=== PATIENT | female | born 1990 | race Caucasian/White ===

== ENCOUNTER 2024-12-07 15:20 | Emergency (ER) | payer OTHER, SELFPAY ==
[2024-12-07 15:29] VITALS: BP 120/75; BP 130/70; PULSE 109; PULSE 115; RESP 21; TEMP 36.2; O2SAT 95; BMI 21.2
--- NOTE | 2024-12-07 16:15 | ED_ITS ---
HPI - General Adult General Chief complaint: Fall Stated complaint: fall, hit head, l eyebrow lac, drank 2 beers Time Seen by Provider: 12/07/24 16:09 Source: patient Mode of arrival: ambulatory Limitations: no limitations History of Present Illness ED Provider: Fidelina Capps PA-C HPI narrative: This is a 34-year-old female, with no known medical problems, who presents emergency department via EMS due to patient reporting a fall. Patient is wanting to leave the emergency room prior to being evaluated. She states that she tripped over her shoe and she hit her head. She denies LOC. she reports that she is feeling well, has no headaches, blurred vision, chest pain, shortness Of breath, abdominal pain, nausea, vomiting or diarrhea. she states that she feels safe at home, and would like to be discharged immediately without treatment. MD complaint: Head strike, laceration left eyebrow Radiation: non-radiation Severity: moderate Quality: aching Pain Consistency: constant Relieving factors: none Exacerbating factors: none Associated symptoms: denies other symptoms Treatments prior to arrival: none Related Data Allergies Allergy/AdvReac Type Severity Reaction Status Date / Time No Known Allergies Allergy Verified 12/07/24 15:36 Review of Systems Review of Systems: Yes all other systems are reviewed and are negative Constitutional: Constitutional: Reports as per [facility] Social History Social History Alcohol intake: current Smoked in Last 30 Days: Yes Use of substances other than those prescribed or required for medical reasons: No Advance Directives: No Advance Directives Information Provided: No Do you have a plan to hurt others: No Plan Physical Exam ED Vital Signs: Vital Signs - 24 hr 12/07/24 15:29 12/07/24 16:21 Temperature 97.1 F 97.1 F Pulse Rate 109 H 109 H Respiratory Rate 21 H 21 H Blood Pressure 120/75 120/75 Pulse Oximetry 95 95 Oxygen Delivery Method Room Air Room Air BMI result Body Mass Index 21.2 Const General: cooperative, comfortable and no acute distress Limitations: no limitations HENMT Other: patient with infraorbital ecchymosis seen, no bony step-off or deformity. Left eyebrow with 1 cm partial-thickness laceration noted, the active bleeding noting. Head: Yes normal to inspection, Yes normocephalic, Yes atraumatic, No Zuñiga's sign, No occipital foramen tenderness, No raccoon eyes, No scalp lesion and No scalp tenderness Ears: hearing grossly normal bilaterally and TM's normal bilaterally ( No hemotympanum) General nose exam: Normal external nose present Face and sinus: Yes normal facial exam Mouth: Normal oral and palatal mucosa present, oropharynx normal and moist mucous membranes Throat: Yes posterior oropharynx normal Eyes General: appearance normal, both eyes and all related structures Eyelids: Yes eyelids normal Conjunctivae: conjunctivae normal Sclerae: sclerae normal Pupils: Equal, round and reactive pupils present EOM: EOMs intact bilaterally Neck Other: no midline spine tenderness on examination. Neck: Yes normal visual inspection, Yes full ROM and Yes no lymphadenopathy Lymphatic: no lymphadenopathy noted Chest Chest palpation & inspection: normal inspection of the chest Resp Effort & Inspection: normal respiratory effort and able to speak in complete sentences Auscultation: clear to auscultation bilaterally, no crackles, no rales, no rhonchi and no wheezes Cardio Rate: regular rate Rhythm: regular rhythm Heart sounds: S1 normal heart sound present and S2 normal heart sound present GI Inspection: Yes normal to inspection Skin General skin exam: no rashes or lesions noted Trauma: no lacerations or abrasions Wounds: no wounds Neuro General: moves all extremities Cranial nerves: Yes CN's II-XII intact bilaterally and Yes Equal, round and reactive pupils present Cognition (Neuro): normal cognition Gait exam (Neuro): Normal gait present Motor exam (neuro): 5/5 motor strength present throughout and Pronator motor function not present Extrem General: Yes normal to inspection Right upper extremity: normal to inspection Left upper extremity: normal to inspection Right lower extremity: normal to inspection Left lower extremity: normal to inspection Medical Decision Making Medical Decision Making MDM Narrative: This is a 34-year-old female who presents emergency department for evaluation of laceration to left eyebrow status post mechanical fall which occurred today. Patient was brought in by EMS. On arrival, vital signs reveal slight tachycardia at 1:09 a.m., she is anxious appearing. I found patient trying to walk out of the emergency room, stating that she did not want to be here. I assess patient, she is neurologically intact with no focal deficits on exami [facility]. She does have a partial-thickness laceration noted to her left eyebrow, with ecchymosis seen in her right infraorbital region with no bony step-off or deformity. Patient requiring suture repair of her left eyebrow. Patient is adamant that she does not want to stay in the emergency room to be medically evaluated. I discussed with patient that she should stay to be fully medically evaluated, discussed that she may have life-threatening injury, I discussed with patient that I would like to get a CT of her head, and facial bones however she adamantly refuses. She is alert and oriented, with no clinical indication that she could not make these medical decisions on her own. I discussed with patient that if she signs against medical advice she is understanding the risks and consequences of leaving including serious injury and or . She understands these consequences, patient signed against medical advice Differential Diagnosis Differential Diagnoses: The differential diagnosis associated with the presentation includes ICH, laceration, closed head injury, fall Discharge Plan Discharge Clinical Impression: Laceration of eyebrow, Head injury Patient Disposition: Left Against Medical Advice Instructions: Head Injury (ED) Additional Instructions: You presented to the emergency department after a reported fall. You did not want to stay to be evaluated. I discussed with the you that leaving today is leaving against medical advice. You have a laceration of your left eyebrow which require suture repair. You declined wanting to have this performed. I am also recommending you have images given bruising on your head, however you declined this. I discussed with you that you are at risk for serious injury including but not limited to stroke and/or . You understand these risks, and still would leave against medical advice. Stand Alone Forms: Against Medical Advice Interventions: ED Discharge Assessment Last Done: 12/07/24 16:21 Discharge Date/Time: 12/07/24 16:25 Print Language: Omani
[2024-12-07 16:21] VITALS: BP 120/75; PULSE 109; RESP 21; TEMP 36.2; O2SAT 95
--- NOTE | 2024-12-07 16:22 | PC.NURSE ---
Pt states I don't even know why the cooking chef were called, I'm fine and I feel fine. This is taking too long, I'm just going to leave. MD aware and brought to bedside. RN and MD explained risks of leaving without evaluation, offered medication and imaging, pt adamant about leaving. Pt educated again on risks and signs and symptoms to look out for, pt verbalizes understanding. Pt aaox4, dispo changed to AMA.
== END 2024-12-07 16:25 | disposition left against medical advice (07) ==
PROVIDERS: Emergency Provider Emergency Medicine
DX: S01.112A Laceration without foreign body of left eyelid and periocular area, initial encounter (principal); S09.90XA Unspecified injury of head, initial encounter; W01.0XXA Fall on same level from slipping, tripping and stumbling without subsequent striking against object, initial encounter; Z53.29 Procedure and treatment not carried out because of patient's decision for other reasons; R00.0 Tachycardia, unspecified; Y93.9 Activity, unspecified; Y92.9 Unspecified place or not applicable; Y99.9 Unspecified external cause status
CPT/HCPCS: 99283; 99284

== ENCOUNTER 2025-02-04 13:26 | Inpatient (IN) | payer OTHER, SELFPAY ==
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
--- NOTE | ~2025-02-04 | CT_ITS ---
CLINICAL HISTORY: Low sats, high D-dimer CT angiography chest using contrast. 3-D postprocessing Comparison: CR/SR - XR CHEST 2 VIEWS - 02/04/25 16:24 EDT Findings: There is good opacification of the main, right and left pulmonary arteries. No CT evidence of pulmonary embolism. Normal caliber thoracic aorta and great vessels. Heart size within normal limits. RV/LV ratio normal. Shotty mediastinal lymph nodes. No lymphadenopathy. Subsegmental dependent atelectasis. Subtle patchy interstitial disease possible interstitial pneumonitis. No pneumothorax, pleural effusions, pleural plaques or calcifications. No thyroid nodules demonstrated. No chest wall masses.No axillary adenopathy. Hepatic steatosis. No splenomegaly. Mild hepatomegaly. No bony destructive processes demonstrated. Impression: 1. No CT evidence of pulmonary embolus. 2. Normal caliber thoracic aorta. 3. Subsegmental dependent atelectasis. Subtle patchy interstitial disease possible interstitial pneumonitis. No pleural effusions. 4. Mild hepatomegaly with hepatic steatosis. This document has been electronically signed by: Victorino Salomon MD on 02/04/2025 20:02:17
--- NOTE | ~2025-02-04 | XR_ITS ---
EXAMINATION: XR CHEST CLINICAL INFORMATION: Low oxygen sats COMPARISON: None available. TECHNIQUE: 2 views of the chest were obtained. FINDINGS: The cardiac, hilar, and mediastinal contours are normal. There are patchy oval and rounded pulmonary opacities bilaterally. Most notable is in the right lower lung. There is no pneumothorax or pleural effusion. There is no focal osseous or soft tissue abnormality. XR/XR chest 2V IMPRESSION: Bilateral subtle patchy pulmonary opacities suspicious for multifocal pneumonia. Electronically signed by: Mook Guzman MD 02/04/2025 04:29 PM EDT RP
--- NOTE | 2025-02-04 13:36 | ED_ITS ---
HPI - General Adult General Chief complaint: ETOH/Substance Use Stated complaint: HEAVY ETOH INTOXICATION,UNABLE TO STAND PER EMS Time Seen by Provider: 02/04/25 13:29 History of Present Illness ED Provider: Demarco CALI narrative: The patient is a 34-year-old woman with a history of homelessness and alcoholism who was brought to the hospital by ambulance after being found passed out on a sidewalk today. The patient admits to using alcohol. She denies any other drug use. She denies any kind of IV drug use especially. She denies any injuries. She feels extremely thirsty. She is also complaining of significant itchiness. She has a skin rash on her trunk and her extremities that she believes is poison phan and which is causing her a great deal of itchiness.. She denies headache, chest pain, abdominal pain, nausea, vomiting. Related Data Previous Rx's ?Medication ?Instructions ?Recorded amoxicillin 500 mg-potassium 1 tab PO BID 7 days #14 t abs 02/05/25 clavulanate 125 mg tablet (Augmentin) thiamine mononitrate (vit B1) 100 100 mg PO DAILY 30 d ays #30 tabs 02/05/25 mg tablet triamcinolone acetonide 0.1 % 1 appl topical BID 7 day s #1 g 02/05/25 topical cream Allergies Allergy/AdvReac Type Severity Reaction Status Date / Time No Known Allergies Allergy Verified 02/04/25 13:54 Review of Systems 2 Review of Systems: Yes all other systems are reviewed and are negative PMFSH Past Medical History Medical History Alcohol use disorder Social History Social History Alcohol intake: current Alcohol intake frequency: 3 or more drinks per day Smoked in Last 30 Days: Yes Use of substances other than those prescribed or required for medical reasons: No Advance Directives: No Advance Directives Information Provided: No Physical Exam ED Vital Signs: Vital Signs - 24 hr 02/04/25 13:41 02/04/25 16:29 02/04/25 16:55 Temperature 98.3 F Pulse Rate 113 H 98 Respiratory Rate 20 16 Blood Pressure 142/79 H 128/85 Pulse Oximetry 93 96 83 L Oxygen Delivery Method Room Air Nasal Cannula Room Air Oxygen Flow Rate 2 BMI result Body Mass Index 19.7 Const Other: The patient was initially mildly agitated and in a manner consistent with intoxication. She seemed restless with mild slurring of speech. HENMT Other: Face is symmetrical. Mucous membranes moist. Tongue is midline. Airway clear. Eyes Other: Pupils are round equal, conjunctivae are clear, extraocular movements intact Neck Neck: Yes normal visual inspection, Yes full ROM and Yes no lymphadenopathy Resp Effort & Inspection: normal respiratory effort Auscultation: clear to auscultation bilaterally Cardio Rate: tachycardic Rhythm: regular rhythm Heart sounds: S1 normal heart sound present and S2 normal heart sound present GI Other: The abdomen is soft and nontender Skin Other: The patient has a rash on her abdomen and on her left flank which she says is very itchy and which I think is consistent with possible poison phan. Neuro Other: The patient was awake and seemed somewhat agitated and in a manner consistent with intoxication. Cranial nerves 2-12 are intact. She moves her extremities symmetrically and appropriately. She is mildly tremulous. Extrem Other: No deformities to the extremities. No peripheral edema. Medications Administered Generic Name Dose Route Start Last Admin Trade Name Freq PRN Reason Stop Dose Admin Enoxaparin Sodium 40 mg 02/04/25 22:00 02/04/25 21:54 Enoxaparin Sodium 40 Mg/0.4 Ml Syringe SUBCUT 40 mg Q24H ROSINA Administration Ampicillin Sodium/Sulbactam 100 mls @ 200 mls/hr 02/04/25 21:00 02/05/25 09:12 Sodium 3 gm/ Sodium Chloride IV Infused Q6H ROSINA Infusion Nicotine 21 mg 02/05/25 11:15 02/05/25 14:55 Nicotine 21 Mg Patch.Td24 TRANSDERMA 21 mg DAILY ROSINA Administration Phenobarbital 30 mg 02/05/25 09:00 02/05/25 08:31 Phenobarbital 30 Mg Tablet PO 02/06/25 21:01 30 mg BID ROSINA Administration Sodium Chloride 3 ml 02/05/25 00:00 02/05/25 08:31 0.9 % Sodium Chloride Flush 3 Ml Syringe IVFLUSH 3 ml QSHIFT ROSINA Administration Thiamine HCl 100 mg 02/05/25 09:00 02/05/25 08:30 Thiamine Hcl 100 Mg Tablet PO 100 mg DAILY ROSINA Administration Triamcinolone Acetonide 1 appl 02/04/25 21:25 02/05/25 08:32 Triamcinolone Acet 0.1 % Cream 15 Gm Tube TOPICAL 1 appl BID ROSINA Administration Protocol Discontinued Medications Generic Name Dose Route Start Last Admin Trade Name Chivo PRN Reason Stop Dose Admin Ceftriaxone Sodium 1 gm 02/04/25 17:24 02/04/25 17:32 Ceftriaxone Sodium 1 Gm Vial IVPUSH 02/04/25 17:25 1 gm ONCE ONE Administration Diazepam 10 mg 02/04/25 13:36 02/04/25 14:40 Diazepam 10 Mg/2 Ml Cartridge IM 02/04/25 13:37 10 mg STAT STA Administration Diazepam 5 mg 02/04/25 16:57 02/04/25 17:21 Diazepam 5 Mg Tablet PO 02/04/25 16:58 5 mg ONCE ONE Administration Diazepam 10 mg 02/04/25 21:17 02/04/25 21:54 Diazepam 10 Mg/2 Ml Cartridge IVPUSH 02/04/25 21:18 10 mg STAT STA Administration Sodium Chloride 1,000 mls @ 999 mls/hr 02/04/25 17:30 02/04/25 18:33 Ns IV 02/04/25 18:30 Infused .Q1H1M ROSINA Infusion Azithromycin 500 mg/ Sodium 250 mls @ 125 mls/hr 02/04/25 17:40 02/04/25 21:27 Chloride IV 02/04/25 19:39 Infused ONCE ONE Infusion Thiamine HCl 200 mg/ Sodium 102 mls @ 204 mls/hr 02/04/25 19:00 02/04/25 21:27 Chloride IV 02/04/25 19:29 Infused ONCE ONE Infusion Iohexol 100 ml 02/04/25 19:23 02/04/25 19:23 Iohexol 350 Mg/Ml 100 Ml Infus..Btl IV 02/04/25 19:24 65 ml ONCE ONE Administration Methadone HCl 20 mg 02/05/25 14:34 02/05/25 15:07 Methadone Hcl 20 Mg/2 Ml Oral.Conc PO 02/05/25 14:35 20 mg ONCE ONE Administration Naloxone HCl 8 mg 02/05/25 14:53 02/05/25 15:08 Naloxone Hcl Nasal Take Home 4 Mg [place] NOSTRILALT 02/05/25 14:54 8 mg ONCE ONE Administration Ondansetron HCl 4 mg 02/04/25 14:27 02/04/25 14:40 Ondansetron Odt 4 Mg Tab.[place] TRANSLINGU 02/04/25 14:28 4 mg ONCE ONE Administration Phenobarbital Sodium 177 mg 02/04/25 19:00 02/04/25 19:33 Phenobarbital Sodium 130 Mg/Ml Im Once IM 02/04/25 19:01 177 mg ONCE ONE Administration Phenobarbital Sodium 130 mg 02/04/25 22:00 02/05/25 01:45 Phenobarbital Sodium 130 Mg/Ml Vial Im Q3hx2 IM 02/05/25 01:01 130 mg Q3H ROSINA Administration Phenobarbital Sodium 130 mg 02/04/25 20:54 02/04/25 21:11 Phenobarbital Sodium 130 Mg/Ml Vial IM 02/04/25 20:55 130 mg ONCE ONE Administration Medical Decision Making Medical Decision Making [facility] Narrative: The patient is a 34-year-old female with a history of alcoholism. She is also homeless. She was brought in by ambulance after having been found passed out on the sidewalk. She seems intoxicated. She also is very itchy and has a rash which is likely secondary to poison phan. She seemed quite agitated and I attributed this to her alcohol use and her itchiness. She was given 10 mg of IM diazepam. She became much calmer and was able to fall asleep after that but her oxygen saturations dropped to the 70s on room air. She was placed on oxygen via nasal cannula with good oxygen saturations. Although my clinical suspicion for an acute pulmonary problem was very low I felt that given the degree of drop in her oxygen saturations I should get a chest x-ray. She was sent for a two-view chest x-ray which I looked at and thought was unremarkable but which was read by the radiologist as possibly showing multifocal infiltrates. Because of this blood cultures and a lactate were obtained in addition to the blood work that had already been obtained also I added on a D-dimer to the patient's initial blue tube. The patient's lactate came back normal at 2.0. Her white blood count is 5.6. She does not have a left shift on her differential. She is 52% neutrophils. Additionally she has a an undetectable CRP. She is negative for influenza, RSV, and COVID. In case there is a pneumonia the patient has been covered with ceftriaxone and azithromycin. The D-dimer has come back elevated and I have ordered a CT pulmonary angiogram. Additionally the patient says that she thinks she recently has a head injury. I have ordered a noncontrast head CT. She does not seem to have any cervical spine injury. Additionally the patient has had increasing tremulousness as time progresses from the time of the IM diazepam. At this point I think her risk of significant alcohol withdrawal is very high and I have started the phenobarbital protocol. I will be signing the patient out to my colleague at change of shift pending the results of the CT scans. The patient was admitted. Lab Data 02/05/25 04:38 02/05/25 04:38 Labs: Lab Results 02/04/25 02/04/25 02/04/25 Range/Units 14:30 17:14 17:28 WBC 5.6 (4.8-10.8) X10*3/uL RBC 3.89 L (4.20-5.50) X10*6/uL Hgb 12.1 (12.0-16.0) g/dl Hct 36.0 L (37.0-47.0) % MCV 92.5 (80.0-98.0) fL MCH 31.1 (27.0-33.0) pg MCHC 33.6 (31.0-35.0) g/dl RDW 13.1 (11.0-16.0) % Plt Count 194 (160-400) X10*3/uL MPV 8.9 L (9.4-12.3) fL Immature Gran % (Auto) 1.3 H (0.0-0.4) % Neut % (Auto) 52.5 (45-73) % Lymph % (Auto) 32.0 (20-40) % Tompkins % (Auto) 12.0 H (2-11) % Eos % (Auto) 0.4 (0-4) % Baso % (Auto) 1.8 (0-2) % Lymph # (Auto) 1.8 (1.2-4.9) X10*3/uL Tompkins # (Auto) 0.7 (0.1-1.2) X10*3/uL Eos # (Auto) 0.0 (0.0-0.4) X10*3/uL Baso # (Auto) 0.1 (0.0-0.2) X10*3/uL Abs Immat Gran (auto) 0.07 H (0.00-0.03) X10*3/uL Absolute Neuts (auto) 2.9 (2.0-8.3) x10*3/uL Absolute Nucleated RBC 0.000 (0.0-0.012) X10*3/uL Nucleated RBC % (auto) 0.0 (0.0-0.2) /100WBC PT 10.3 L (10.9-12.4) SEC INR 0.9 (0.9-1.1) D-Dimer High Sensitivty 346 NG/ML Sodium 145 (135-145) mmol/L Potassium 3.3 (3.3-5.1) mmol/L Chloride 106 (96-108) mmol/L Carbon Dioxide 26 (22-29) mmol/L Anion Gap 16 (12-20) BUN 15 (9-16) mg/dL Creatinine 0.53 (0.5-1.4) mg/dL Estim Creat Clear Calc 100.0 Estimated GFR > 60 Random Glucose 106 (60-115) mg/dL Lactic Acid 2.0 (0.5-2.0) mmol/L Calcium 8.4 (8.4-10.2) mg/dL Magnesium 2.0 (1.6-2.6) mg/dL Total Bilirubin 0.2 (0.0-1.0) mg/dL Direct Bilirubin 0.2 (0.0-0.5) mg/dL AST 114 H (5-31) U/L ALT 106 H (0-31) U/L Alkaline Phosphatase 116 (39-117) U/L C-Reactive Protein < 0.10 (< or = 0.50) mg/dL Total Protein 8.3 H (6.5-8.0) g/dL Albumin 4.8 (3.5-5.0) g/dL Beta HCG, Quant < 2 mIU/mL Ethyl Alcohol 243 mg/dL Influenza Type A (PCR) NEGATIVE (Negative) Influenza Type B (PCR) NEGATIVE (Negative) RSV RNA Qual (PCR) NEGATIVE (Negative) SARS-CoV-2 RNA (RT-PCR) NEGATIVE (Negative) Independent Interpretation I performed an independent interpretation of an: EKG Interpretation: EKG at 17:34 shows a sinus rhythm at 77 beats per minute. QTC is 445, QRS 84, no definite acute changes of any kind. Discharge Plan Discharge Clinical Impression: Alcohol withdrawal, Alcoholism, Homeless, Poison phan dermatitis Patient Disposition: Admitted As Inpatient
[2025-02-04 13:41] VITALS: BP 142/79; BP 166/102; PULSE 113; PULSE 122; RESP 20; TEMP 36.8; O2SAT 93; O2SAT 98; BMI 19.7
[2025-02-04 14:36] LABS: MANUAL DIFF FLAG NO
[2025-02-04 14:38] LABS: Hematocrit 36.0 % (37.0-47.0); Hemoglobin 12.1 g/dl (12.0-16.0); Imm Gran Abs Auto 0.07 X10*3/uL (0.00-0.03); Imm Gran Pct Auto 1.3 % (0.0-0.4); Lymphocytes Absolute Auto 1.8 X10*3/uL (1.2-4.9); Mean Corpuscular HGB Conc 33.6 g/dl (31.0-35.0); Mean Corpuscular Hemoglobin 31.1 pg (27.0-33.0); Mean Corpuscular Volume 92.5 fL (80.0-98.0); NRBC Abs Auto 0.000 X10*3/uL (0.0-0.012); NRBC Pct Auto 0.0 /100WBC (0.0-0.2); Platelet Count 194 X10*3/uL (160-400); Red Blood Count 3.89 X10*6/uL (4.20-5.50); White Blood Count 5.6 X10*3/uL (4.8-10.8)
[2025-02-04] MEDS: diazePAM 10 MG/2 ML CARTRIDGE IM (14:40)
[2025-02-04 14:46] LABS: INTERNATIONAL NORM RATIO 0.9 (0.9-1.1); Prothrombin Time 10.3 SEC (10.9-12.4)
[2025-02-04 15:00] LABS: Alanine Aminotransferase 106 U/L (0-31); Albumin Level 4.8 g/dL (3.5-5.0); Alkaline Phosphatase 116 U/L (39-117); Anion Gap 16 (12-20); Aspartate Amino Transferase 114 U/L (5-31); Blood Urea Nitrogen 15 mg/dL (9-16); Calcium 8.4 mg/dL (8.4-10.2); Carbon Dioxide 26 mmol/L (22-29); Chloride 106 mmol/L (96-108); Creatinine Clr Calc Pharmacy 100.0; Estimated Glomerular Filt Rate > 60; Potassium 3.3 mmol/L (3.3-5.1); Sodium 145 mmol/L (135-145); Total Protein 8.3 g/dL (6.5-8.0)
--- NOTE | 2025-02-04 16:15 | PC.NURSE ---
Pt asleep s/p Valium, [address] Pal, placed on 2lpm via nc and awoken. Given crackers. Sat 98% at this time with continuous 02 monitoring. Plan of care ongoing. Off unit to xray at this time.
[2025-02-04 16:19] LABS: Magnesium 2.0 mg/dL (1.6-2.6)
[2025-02-04 16:29] VITALS: BP 128/85; PULSE 98; RESP 16; O2SAT 96
--- OUTSIDE RECORDS SUMMARY | 2025-02-04 16:29 | XMS_ITS | Clinical Summary ---
Author Organization [facility] Address [address] [place] [phone] Phone Care Team Providers Care Reptile Keeper Name Role Phone Physician, No Pcp Primary Care Provider Unavaila ble Allergies No known active allergies Medications No known medications Encounters Date Type Department Care Team Description 01/25/2025 9:42 PM EDT - 01/26/2025 2:53 AM EDT [facility] Emergency [address] [place] [phone] Garry Matthew MD Kokkinos, Erika, MD Alcoholic intoxication without complication ([facility] V24) (Primary Dx) Discharge Disposition: Home or Self Care 01/01/2025 12:55 AM EDT - 01/01/2025 7:00 AM EDT Emergency [facility] Emergency [address] [place] [phone] Sandi Navas MD Alcoholic intoxication without complication ([facility] V24) (Primary Dx); Substance use disorder; Hypokalemia; Elevated liver enzymes Discharge Disposition: Home or Self Care 12/29/2024 10:46 PM EDT - 12/30/2024 2:53 AM EDT [facility] Emergency [address] [place] [phone] Opiate overdose, accidental or unintentional, initial encounter ([facility] V24, [facility] V28) (Primary Dx); Alcohol abuse Discharge Disposition: Home or Self Care from Last 3 Months Social History Tobacco Use Types Packs/Day Years Used Date Smoking Tobacco: Every Day Cigarettes Tobacco Cessation:Ready to Q uit: Not Asked; Counseling Given: Not Answered Alcohol Use Standard Drinks/Week Comments Not Currently 0 (1 standard drink = 0.6 oz pur e alcohol) Comments Unknown Sex and Gender Information Value Date Recorded Sex Assigned at Female 09/28/2024 8:56 PM EDT Legal Sex Female 1:24 AM EST Gender Identity Female 09/28/2024 8:56 PM EDT Sexual Orientation Straight 09/28/2024 8: 56 PM EDT Obstetrics History Last Filed Vital Signs Vital Sign Reading Time Taken Comments Blood Pressure 115/68 01/26/2025 1:55 AM EDT Pulse 62 01/26/2025 1:55 AM EDT Temperature 36.7 C (98.1 F) 01/26/2025 1:55 AM EDT Respiratory Rate 16 01/26/2025 1:55 AM EDT Oxygen Saturation 96% 01/26/2025 1:55 AM EDT Inhaled Oxygen Concentration - - Weight 44.5 kg (98 lb) 01/25/2025 9:53 PM EDT Height 149.9 cm (4' 11 ) 01/25/2025 9:53 PM EDT Body Mass Index 19.79 01/25/2025 9:53 PM EDT Plan of Treatment Health Maintenance Due Date Last Done Comments Hepatitis A Vaccines (1 of 2 - Risk 2-dose series) 09/05/2007 Hepatitis B Vaccines (1 of 3 - 19+ 3-dose series) 09/05/2007 Pneumococcal Vaccine: Pediatrics (0 to 5 Years) and At-Risk Patients (6 to 49 Years) (1 of 2 - PCV) 09/05/2007 Cervical Cancer Screening: P ap Smear 2009 Cholesterol Screening (Lipid Panel) 06/04/2022 HIV Screening 06/04/2022 Hepatitis C Screening 06/04/2022 Social Influencers of Health Screening 06/04/2022 COVID-19 Vaccine (1 - 2023-2 5 season) 2024 Depression Screening 07/02/2024 Influenza Vaccine (#1) 2025 DTaP,Tdap,and Td Vaccines (3 - Td or Tdap) 01/22/2034 01/23/2024, 11/13/2012 HIB Vaccines Aged Out No longer eligi ble based on patient's age to complete this topic HPV Vaccines Aged Out No longer eligi ble based on patient's age to complete this topic IPV Vaccines Aged Out No longer eligi ble based on patient's age to complete this topic MMR Vaccines Aged Out No longer eligi ble based on patient's age to complete this topic Meningococcal ACWY Vaccine Aged Out N o longer eligible based on patient's age to complete this topic Meningococcal B Vaccine Aged Out No l onger eligible based on patient's age to complete this topic RSV Immunization Patients Under 20 months Aged Out No longer eligible b ased on patient's age to complete this topic Varicella Vaccines Aged Out No longer eligible based on patient's age to complete this topic Procedures Procedure Name Priority Date/Time Associated Diagnosis Comments CBC WITH AUTO DIFFERENTIAL STAT 01/01/2025 1:39 AM EDT CBC AND DIFFERENTIAL STAT 01/01/2025 1:39 AM EDT COMPREHENSIVE METABOLIC PANEL STAT 01/01/2025 1:39 AM EDT LIPASE STAT 01/01/2025 1:39 AM EDT MAGNESIUM STAT 01/01/2025 1:39 AM EDT ETHANOL STAT 01/01/2025 1:39 AM EDT POC , URINE DIAGNOSTIC STAT 01/01/2025 1:34 AM EDT METHADONE SCREEN, URINE STAT 01/01/2025 1:25 AM EDT PHENCYCLIDINE, URINE STAT 01/01/2025 1:25 AM EDT BUPRENORPHINE SCREEN, URINE STAT 01/01/2025 1:25 AM EDT DRUG ABUSE SCREEN 8A PANEL, URINE STAT 01/01/2025 1:25 AM EDT TROPONIN I HIGH SENSITIVITY STAT 12/30/2024 1:[address] HEAD WO CONTRAST STAT 12/30/2024 1 :10 AM EDT XR CHEST 2 VIEWS STAT 12/30/2024 12:0 8 AM EDT ECG ANNOTATED 12/30/2024 B-TYPE NATRIURETIC PEPTIDE STAT 12/29/2024 11:52 PM EDT LIPASE STAT 12/29/2024 11:52 PM EDT MAGNESIUM STAT 12/29/2024 11:52 PM EDT TROPONIN I HIGH SENSITIVITY STAT 12/29/2024 11:52 PM EDT SALICYLATE LEVEL STAT 12/29/2024 11:5 2 PM EDT ACETAMINOPHEN LEVEL STAT 12/29/2024 1 1:52 PM EDT ETHANOL STAT 12/29/2024 11:52 PM EDT COMPREHENSIVE METABOLIC PANEL STAT 12/29/2024 11:52 PM EDT POC , URINE DIAGNOSTIC STAT 12/29/2024 11:50 PM EDT DRUG ABUSE SCREEN 8A PANEL, URINE STAT 12/29/2024 11:44 PM EDT METHADONE SCREEN, URINE STAT 12/29/2024 11:44 PM EDT PHENCYCLIDINE, URINE STAT 12/29/2024 11:44 PM EDT BUPRENORPHINE SCREEN, URINE STAT 12/29/2024 11:44 PM EDT CBC WITH AUTO DIFFERENTIAL STAT 12/29/2024 11:10 PM EDT CBC AND DIFFERENTIAL STAT 12/29/2024 11:10 PM EDT ECG 12-LEAD STAT 12/29/2024 10:59 PM EDT from Last 3 Months Results * (ABNORMAL) CBC auto differential (01/01/2025 1:39 AM EDT) Only the most recent of2 resultswithin the time period is included. WBC 4.6(L) 4.8 - 10.8 K/mcL LAB HEMETOLOGY METHOD 01/01/2025 2:29 AM [facility] RBC 4.40 3.80 - 4.80 M/mcL LAB HEMETOLOGY METHOD 01/01/2025 2:29 AM [facility] Hemoglobin 13.1 11.5 - 16.0 g/dL LAB HEMETOLOGY METHOD 01/01/2025 2:29 AM [facility] Hematocrit 39.5 35.0 - 47.0 % LAB HEMETOLOGY METHOD 01/01/2025 2:29 AM [facility] MCV 90.4 79.0 - 98.0 FL LAB HEMETOLOGY METHOD 01/01/2025 2:29 AM [facility] MCH 30.0 27.0 - 32.0 pcg LAB HEMETOLOGY METHOD 01/01/2025 2:29 AM [facility] MCHC 33.2 32.0 - 37.0 g/dL LAB HEMETOLOGY METHOD 01/01/2025 2:29 AM [facility] RDW 12.3 11.0 - 15.0 % LAB HEMETOLOGY METHOD 01/01/2025 2:29 AM [facility] Platelets 159 130 - 400 K/mcL LAB HEMETOLOGY METHOD 01/01/2025 2:29 AM [facility] MPV 10.3 7.0 - 11.0 FL LAB HEMETOLOGY METHOD 01/01/2025 2:29 AM [facility] NRBC 0.0 <1.0 % LAB HEMETOLOGY METHOD 01/01/2025 2:29 AM [facility] NRBC Absolute 0.00 <0.10 K/mcL LAB HEMETOLOGY METHOD 01/01/2025 2:29 AM [facility] Neutrophils Relative 40.6 % LAB HEMETOLOGY METHOD 01/01/2025 2:29 AM [facility] Lymphocytes Relative 44.6 % LAB HEMETOLOGY METHOD 01/01/2025 2:29 AM [facility] Monocytes Relative 12.7 % LAB HEMETOLOGY METHOD 01/01/2025 2:29 AM [facility] Eosinophils Relative 0.2 % LAB HEMETOLOGY METHOD 01/01/2025 2:29 AM [facility] Basophils Relative 1.3 % LAB HEMETOLOGY METHOD 01/01/2025 2:29 AM [facility] Immature Granulocytes Relative 0.6 % LAB HEMETOLOGY METHOD 01/01/2025 2:29 AM [facility] Neutrophils Absolute 1.88 1.50 - 7.00 K/mcL LAB HEMETOLOGY METHOD 01/01/2025 2:29 AM [facility] Lymphocytes Absolute 2.07 1.00 - 5.00 K/mcL LAB HEMETOLOGY METHOD 01/01/2025 2:29 AM [facility] Monocytes Absolute 0.59 0.20 - 1.00 K/mcL LAB HEMETOLOGY METHOD 01/01/2025 2:29 AM [facility] Eosinophils Absolute 0.01 0.00 - 0.50 K/mcL LAB HEMETOLOGY METHOD 01/01/2025 2:29 AM [facility] Basophils Absolute 0.06 0.00 - 0.20 K/mcL LAB HEMETOLOGY METHOD 01/01/2025 2:29 AM [facility] Immature Granulocytes Absolute 0.03 0.00 - 0.03 K/mcL LAB HEMETOLOGY METHOD 01/01/2025 2:29 AM EDT [facility] Blood Venous blood specimen / Unknown Venipuncture / Unknown 01/01/2025 1:39 AM EDT 01/01/2025 2:22 AM EDT Stanton Go MD LAB BLOOD ORDERABLES Final Result Performing Organization Address [facility] de Phone Number [facility] [address] [place] [address], [place] [phone] * Magnesium (01/01/2025 1:39 AM EDT) Only the most recent of2 resultswithin the time period is included. Magnesium 2.4 1.9 - 2.6 mg/dL LAB CHEMISTRY METHOD 01/01/2025 2:52 AM EDT [facility] Blood Venous blood specimen / Unknown Venipuncture / Unknown 01/01/2025 1:39 AM EDT 01/01/2025 2:22 AM EDT Stanton Go MD LAB BLOOD ORDERABLES Final Result Performing Organization Address [facility] de Phone Number [facility] [address] [place] [address], [place] [phone] * (ABNORMAL) Lipase (01/01/2025 1:39 AM EDT) Only the most recent of2 resultswithin the time period is included. Lipase 83(H) 13 - 75 unit/L LAB CHEMISTRY METHOD 01/01/2025 2:52 AM EDT [facility] Blood Venous blood specimen / Unknown Venipuncture / Unknown 01/01/2025 1:39 AM EDT 01/01/2025 2:22 AM EDT Stanton Go MD LAB BLOOD ORDERABLES Final Result Performing Organization Address [facility]/ZIP Co de Phone Number [facility] [address] [place] [address], [place] [phone] * (ABNORMAL) Ethanol (01/01/2025 1:39 AM EDT) Only the most recent of2 resultswithin the time period is included. Ethanol Level 373(H) 0 - 10 mg/dL LAB CHEMISTRY METHOD 01/01/2025 3:37 AM EDT [facility] Blood Venous blood specimen / Unknown Venipuncture / Unknown 01/01/2025 1:39 AM EDT 01/01/2025 2:22 AM EDT Stanton Go MD LAB BLOOD ORDERABLES Final Result Performing Organization Address [facility] de Phone Number [facility] [address] [place] [address], * (ABNORMAL) Comprehensive metabolic panel (01/01/2025 1:39 AM EDT) Only the most recent of2 resultswithin the time period is included. Sodium 144 133 - 145 mmol/L LAB CHEMISTRY METHOD 01/01/2025 3:08 AM [facility] Potassium 3.3(L) 3.5 - 5.5 mmol/L LAB CHEMISTRY METHOD 01/01/2025 3:08 AM [facility] Chloride 108 96 - 110 mmol/L LAB CHEMISTRY METHOD 01/01/2025 3:08 AM [facility] CO2 26 21 - 32 mmol/L LAB CHEMISTRY METHOD 01/01/2025 3:08 AM [facility] Anion Gap 10 3 - 11 LAB CHEMISTRY METHOD 01/01/2025 3:08 AM [facility] Glucose 92 70 - 100 mg/dL LAB CHEMISTRY METHOD 01/01/2025 3:08 AM [facility] BUN 8 5 - 25 mg/dL LAB CHEMISTRY METHOD 01/01/2025 3:08 AM [facility] Creatinine 0.43(L) 0.50 - 1.10 mg/dL LAB CHEMISTRY METHOD 01/01/2025 3:08 AM [facility] eGFR 129 >=60 mL/min/1. 73m2 LAB CHEMISTRY METHOD 01/01/2025 3:08 AM [facility] Comment:Calculation based on the Chronic Kidney Disease Epidemiology Collaboration (CKD-EPI) equation refit without adjustment for race. BUN/Creatinine Ratio 18.6 LAB CHEMISTRY METHOD 01/01/2025 3:08 AM [facility] Calcium 8.8 8.5 - 10.5 mg/dL LAB CHEMISTRY METHOD 01/01/2025 3:08 AM [facility] AST (SGOT) 176(H) 10 - 42 unit/L LAB CHEMISTRY METHOD 01/01/2025 3:08 AM [facility] ALT (SGPT) 172(H) 10 - 60 unit/L LAB CHEMISTRY METHOD 01/01/2025 3:08 AM [facility] Alkaline Phosphatase 130(H) 42 - 121 unit/L LAB CHEMISTRY METHOD 01/01/2025 3:08 AM [facility] Total Protein 8.4(H) 6.0 - 8.0 g/dL LAB CHEMISTRY METHOD 01/01/2025 3:08 AM [facility] Albumin 4.0 3.2 - 5.0 g/dL LAB CHEMISTRY METHOD 01/01/2025 3:08 AM [facility] Total Bilirubin 0.5 0.0 - 1.4 mg/dL LAB CHEMISTRY METHOD 01/01/2025 3:08 AM [facility] Blood Venous blood specimen / Unknown Venipuncture / Unknown 01/01/2025 1:39 AM EDT 01/01/2025 2:22 AM EDT Stanton Go MD LAB BLOOD ORDERABLES Final Result [facility] [address] [place] [address], [place] [phone] * POC , urine manually resulted (01/01/2025 1:34 AM EDT) Only the most recent of2 resultswithin the time period is included. [facility] HCG, Ur POC Negative Negative Urine Urine specimen obtained by clean catch procedure / Unknown 01/01/2025 1:34 AM EDT Sandi Navas MD POINT OF CARE TEST ENTER /EDIT ORDERABLES Final Result * (ABNORMAL) Drug abuse screen 8a panel, urine (01/01/2025 1:25 AM EDT) Only the most recent of2 resultswithin the time period is included. [facility] Amphetamine Screen, Ur Negative Negative LAB CHEMISTRY METHOD 5 3:08 AM EDT [facility] Comment:Certain OTC medicati ons containing ephedrine, phenylephrine, pseudoephedrine and phenylpropanolamine can cause false positive results. Barbiturate Screen, Ur Negative Negative LAB CHEMISTRY METHOD 5 3:08 AM EDT [facility] Benzodiazepine Screen, Ur Negative Negative LAB CHEMISTRY METHOD 5 3:08 AM EDT [facility] Cocaine Screen, Ur Positive(A ) Negative LAB CHEMISTRY METHOD 5 3:08 AM EDT [facility] Opiate Screen, Ur Negative Negative LAB CHEMISTRY METHOD 5 3:08 AM [facility] Cannabinoid (THC) Screen, Ur Negative Negative LAB CHEMISTRY METHOD 5 3:08 AM EDT [facility] Comment:Specimens from patie nts taking pantoprazole sodium (Protonix) have been shown to produce false positive results. Oxycodone Screen, Ur Negative Negative LAB CHEMISTRY METHOD 3:08 AM EDT [facility] Fentanyl, Ur Positive(A ) Negative LAB CHEMISTRY METHOD 3:08 AM EDT [facility] Urine Urine specimen obtained by clean catch procedure / Unknown Non-blood Collection / Unknown 01/01/2025 1:25 AM EDT 01/01/2025 2:23 AM EDT [facility] - 01/01/2025 3:08 AM EDT Assay cutoffs: Amphetamines 1000 ng/mL Barbiturates 200 ng/mL Benzodiazepines 200 ng/mL Cocaine 300 ng/mL Fentanyl 1 ng/mL Opiates 300 ng/mL Oxycodone 100 ng/mL THC 50 ng/mL Semi-quantitative assay for screening purposes only. Unconfirmed screening result should not be used for non-medical purposes. *ALTERNATE METHOD CONFIRMATION DONE UPON REQUEST ONLY* Stanton Go MD LAB URINE ORDERABLES Final Result [facility] [address] [place] [address], [place] [phone] * Buprenorphine screen, urine (01/01/2025 1:25 AM EDT) Only the most recent of2 resultswithin the time period is included. Buprenorphine Screen Urine Negative Negative LAB CHEMISTRY METHOD 01/01/2025 2:51 AM EDT [facility] Urine Urine specimen obtained by clean catch procedure / Unknown Non-blood Collection / Unknown 01/01/2025 1:25 AM EDT 01/01/2025 2:23 AM EDT [facility] - 01/01/2025 2:51 AM EDT Assay cutoff 5 ng/mL Semi-quantitative assay for screening purposes only. Unconfirmed screening result should not be used for non-medical purposes. *ALTERNATE METHOD CONFIRMATION DONE UPON REQUEST ONLY* Stanton Go MD LAB URINE ORDERABLES Final Result Performing Organization Address City/[facility]/ZIP Co de Phone Number [facility] [address] [place] [address], [place] [phone] * (ABNORMAL) Methadone, urine (01/01/2025 1:25 AM EDT) Only the most recent of2 resultswithin the time period is included. Methadone Screen, Urine Positive (A) Negative LAB CHEMISTRY METHOD 01/01/2025 2:51 AM EDT [facility] Comment: Assay cutoff 300 ng/mL Semi-quantitative assay for screening purposes only. Unconfirmed screening result should not be used for non-medical purposes. *ALTERNATE METHOD CONFIRMATION DONE UPON REQUEST ONLY* Urine Urine specimen obtained by clean catch procedure / Unknown Non-blood Collection / Unknown 01/01/2025 1:25 AM EDT 01/01/2025 2:23 AM EDT Stanton Go MD LAB URINE ORDERABLES Final Result Performing Organization Address City/[facility]/ZIP Co de Phone Number [facility] [address] [place] [address], [place] [phone] * Phencyclidine, urine (01/01/2025 1:25 AM EDT) Only the most recent of2 resultswithin the time period is included. PCP Scrn, Ur Negative Negative LAB CHEMISTRY METHOD 01/01/2025 2:51 AM EDT [facility] Comment: Assay cutoff 25 ng/mL Semi-quantitative assay for screening purposes only. Unconfirmed screening result should not be used for non-medical purposes. *ALTERNATE METHOD CONFIRMATION DONE UPON REQUEST ONLY* Urine Urine specimen obtained by clean catch procedure / Unknown Non-blood Collection / Unknown 01/01/2025 1:25 AM EDT 01/01/2025 2:23 AM EDT Stanton Go MD LAB URINE ORDERABLES Final Result Performing Organization Address [facility] Co de Phone Number [facility] [address] [place] [address], [place] [phone] * Troponin I high sensitivity (NOW and then in 1 hour) (12/30/2024 1:24 AM EDT) Only the most recent of2 resultswithin the time period is included. High Sensitivity Troponin I 5 <=54 ng/L LAB CHEMISTRY METHOD 12/30/2024 1:59 AM EDT [facility] Blood Venous blood specimen / Unknown Venipuncture / Unknown 12/30/2024 1:24 AM EDT 12/30/2024 1:36 AM EDT Narrative [facility] - 12/30/2024 1:59 AM EDT High levels of biotin in samples may falsely decrease hsTroponin values. Use caution when interpreting hsTroponin results in patients taking biotin who exhibit renal impairment (eGFR <60) or in patients taking more than 20 mg/day of biotin. Roxana BRANDT LAB BLOOD ORDERABLES Final Resul t Performing Organization Address [facility] de Phone Number [facility] [address] [place] [address], [place] [phone] * CT Head wo Contrast (12/30/2024 1:10 AM EDT) Anatomical Region Laterality Modality Head and Neck Computed Tomogra phy 12/30/2024 2:10 AM EDT Impressions 12/30/2024 2:10 AM EDT 1. No acute intracranial findings. This document has been electronically signed by: Jesse Connors MD on 12/30/2024 02:10:08 Narrative 12/30/2024 2:10 AM EDT INDICATION: drug use, headache, ?fall CT head without contrast Comparison: CT - CT HEAD WO CONTRAST - 09/28/24 21:38 EDT Findings: No intra-axial mass, midline shift, hydrocephalus, or acute hemorrhage. No significant atrophy-like change or white matter disease. The visualized paranasal sinuses and mastoid air cells are normal. The orbits are within normal limits. There is no acute fracture. Procedure Note Jesse Connors - 12/30/2024 INDICATION: drug use, headache, ?fall CT head without contrast Comparison: CT - CT HEAD WO CONTRAST - 09/28/24 21:38 EDT Findings: No intra-axial mass, midline shift, hydrocephalus, or acute hemorrhage. No significant atrophy-like change or white matter disease. The visualized paranasal sinuses and mastoid air cells are normal. The orbits are within normal limits. There is no acute fracture. IMPRESSION: 1. No acute intracranial findings. This document has been electronically signed by: Jesse Connors MD on 12/30/2024 02:10:[address] PROCEDURES Final Result * XR Chest 2 Views (12/30/2024 12:08 AM EDT) Anatomical Region Laterality Modality Body Radiographic Roselia ging 12/30/2024 8:10 AM EDT Impressions 12/30/2024 8:11 AM EDT No acute findings. -------- FINAL REPORT -------- Dictated By: Chino Zee Dictated Date: 12/30/2024 08:10 ET Assigned Physician: Chino Zee Reviewed and Electronically Signed By: Chino Zee Signed Date: 12/30/2024 08:11 ET Workstation ID: [id number] Transcribed By: Self Edit Transcribed Date: 12/30/2024 08:10 ET Narrative 12/30/2024 8:11 AM EDT PROCEDURE: PA and lateral radiographs of the chest. HISTORY: chest pain. COMPARISON: 05/07/2016. FINDINGS: Lungs are hyperinflated but clear. Pleural spaces, pulmonary vasculature, cardiomediastinal contours are normal. Procedure Note Chino Zee MD - 12/30/2024 PROCEDURE: PA and lateral radiographs of the chest. HISTORY: chest pain. COMPARISON: 05/07/2016. FINDINGS: Lungs are hyperinflated but clear. Pleural spaces, pulmonary vasculature,cardiomediastinal contours are normal. IMPRESSION: No acute findings. -------- FINAL REPORT -------- Dictated By: Chino Zee Dictated Date: 12/30/2024 08:10 ET Assigned Physician: Chino Zee Reviewed and Electronically Signed By: Chino Zee Signed Date: 12/30/2024 08:11 ET Workstation ID: [id number] Transcribed By: Self Edit Transcribed Date: 12/30/2024 08:10 ET Roxana BRANDT IMG XR PROCEDURES Final Result * ECG-Annotated (12/30/2024) Provider Onbase MD ECG ORDERABLES Final Result * B-type natriuretic peptide (12/29/2024 11:52 PM EDT) BNP 6 <=100 pcg/mL LAB CHEMISTRY METHOD 12/30/2024 12:45 AM EDT [facility] Blood Venous blood specimen / Unknown Venipuncture / Unknown 12/29/2024 11:52 PM EDT 12/30/2024 12:05 AM EDT Roxana BRANDT LAB BLOOD ORDERABLES Final Resul t [facility] [address] [place] [address], * (ABNORMAL) Acetaminophen level (12/29/2024 11:52 PM EDT) Acetaminophen Level <2.0(L) 10.0 - 30.0 mcg/mL LAB CHEMISTRY METHOD 12/30/2024 12:47 AM EDT [facility] Blood Venous blood specimen / Unknown Venipuncture / Unknown 12/29/2024 11:52 PM EDT 12/30/2024 12:05 AM EDT Stanton Go MD LAB BLOOD ORDERABLES Final Result Performing Organization Address City/[facility]/ZIP Co de Phone Number [facility] [address] [place] [address], [place] [phone] * Salicylate level (12/29/2024 11:52 PM EDT) Salicylate Level 2.8 2.0 - 29.0 mg/dL LAB CHEMISTRY METHOD 12/30/2024 12:38 AM EDT [facility] Blood Venous blood specimen / Unknown Venipuncture / Unknown 12/29/2024 11:52 PM EDT 12/30/2024 12:05 AM EDT Stanton Go MD LAB BLOOD ORDERABLES Final Result Performing Organization Address [facility]/ZIP Co de Phone Number [facility] [address] [place] [address], [place] [phone] * ECG 12 lead (12/29/2024 10:59 PM EDT) Ventricular Rate ECG 110 BPM GEMUSE Atrial Rate 110 BPM GEMUSE P-R Interval 96 ms GEMUSE QRS Duration 68 ms GEMUSE Q-T Interval 322 ms GEMUSE QTc 435 ms GEMUSE P Wave [place] 30 degrees GEMUSE R [place] 55 degrees GEMUSE T [place] 39 degrees GEMUSE ECG Interpretation Sinus tachycardia with short [place] Possible Left atrial enlargement Borderline ECG When compared with ECG of 07-MAY-2016 20:49, Vent. rate has increased BY 43 BPM Nonspecific T wave abnormality has replaced inverted T waves in Inferior leads Nonspecific T wave abnormality, improved in Anterolateral leads Confirmed by MD Miki, [place] ([id number]) on 12/30/2024 4:15:29 PM GEMUSE 12/29/2024 10:5 9 PM EDT 12/30/2024 4:15 PM EDT Stanton Go MD ECG ORDERABLES Final Resul t GEMUSE from Last 3 Months Insurance [facility] Care Teams Reptile Keeper Relationship Specialty Start Date End Date Physician, No Pcp PCP - General 09/28/24
--- OUTSIDE RECORDS SUMMARY | 2025-02-04 16:29 | XMS_ITS | Clinical Summary ---
Author Organization [facility] Address [address] [place] [address] Care Team Providers Care Product Marketing Intern Name Role Phone Unavailable Primary Care Provider Unavailabl e Social History Tobacco Use Types Packs/Day Years Used Date Smoking Tobacco: Never Assessed Sex and Gender Information Value Date Recorded Sex Assigned at Not on file Gender Identity Not on file Sexual Orientation Not on file Plan of Treatment Not on file
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
--- NOTE | 2025-02-04 16:54 | PC.NURSE ---
While awake eating, pt noted with room air sat of 83%, CXR resulted and ?infiltrates. New orders for bld cx and lactic with abx coverage and admission, pt aware/agreeable.
[2025-02-04 16:55] VITALS: O2SAT 83
--- NOTE | 2025-02-04 17:27 | ECG_ITS ---
Test Reason : WEAKNES Blood Pressure : */* mmHG Vent. Rate : 77 BPM Atrial Rate : 77 BPM P-R Int : 110 ms QRS Dur : 84 ms QT Int : 394 ms P-R-T Axes : 23 3 18 degrees QTcB Int : 445 ms Sinus rhythm with short MS Minimal voltage criteria for LVH, may be normal variant ( R in aVL ) Borderline ECG No previous ECGs available Referred By: Willie Pal Electronically Signed By: CECILIA ALVAREZ
[2025-02-04 18:08] LABS: Resp Syncy Virus RNA Qual PCR NEGATIVE (Negative); SARS COV2 PCR INHOUSE NEGATIVE (Negative)
[2025-02-04 18:31] LABS: D Dimer High Sensitivity 346 NG/ML
[2025-02-04] MEDS: iohexoL 350 MG/ML 100 ML INFUS..BTL IV (19:23)
[2025-02-04] MEDS: PHENobarbitaL sodium 130 MG/ML IM ONCE 177 MG IM (19:33)
[2025-02-04] MEDS: Thiamine HCL 200 MG in 0.9 % Sodium Chloride 100 ML 204 MG IV (19:34)
--- NOTE | 2025-02-04 20:43 | PHA.MEDREC ---
Addendum entered by Otf Tatum PharmD 02/04/25 20:44: reviewed Original Note: Pharmacy Consult ? Medication Reconciliation Pharmacy has completed the medication reconciliation. Patient states she is not on any medications.
[2025-02-04 20:48] VITALS: PULSE 91; RESP 18; TEMP 36.7; O2SAT 98
[2025-02-04 20:53] VITALS: BP 104/65
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
[2025-02-04 21:53] VITALS: BP 110/69; PULSE 74; RESP 16; TEMP 36.7; O2SAT 98
[2025-02-04] MEDS: diazePAM 10 MG/2 ML CARTRIDGE IVPUSH (21:54)
[2025-02-04] MEDS: PHENobarbitaL sodium 130 MG/ML VIAL IM Q3Hx2 IM (22:01)
[2025-02-04] MEDS: Triamcinolone Acet 0.1 % Cream 15 GM TUBE 1 APPL TOPICAL (22:25)
[2025-02-05] MEDS: PHENobarbitaL sodium 130 MG/ML VIAL IM Q3Hx2 IM (01:45)
[2025-02-05 02:08] LABS: Appearance Urine Clear; Glucose Urine UA Negative (Negative); PH 6.0 (5.0-9.0); Specific Gravity - Urine 1.020 (1.005-1.025); UMIC TRIGGER UACC YES
[2025-02-05 02:15] LABS: Cannabinoid Screen Urine Not Detected (Not Detect)
[2025-02-05 05:13] LABS: MANUAL DIFF FLAG NO
[2025-02-05 05:16] LABS: Hematocrit 32.6 % (37.0-47.0); Hemoglobin 10.8 g/dl (12.0-16.0); Imm Gran Abs Auto 0.03 X10*3/uL (0.00-0.03); Imm Gran Pct Auto 0.8 % (0.0-0.4); Lymphocytes Absolute Auto 1.2 X10*3/uL (1.2-4.9); Mean Corpuscular HGB Conc 33.1 g/dl (31.0-35.0); Mean Corpuscular Hemoglobin 30.9 pg (27.0-33.0); Mean Corpuscular Volume 93.4 fL (80.0-98.0); NRBC Abs Auto 0.000 X10*3/uL (0.0-0.012); NRBC Pct Auto 0.0 /100WBC (0.0-0.2); Platelet Count 150 X10*3/uL (160-400); Red Blood Count 3.49 X10*6/uL (4.20-5.50); White Blood Count 3.6 X10*3/uL (4.8-10.8)
[2025-02-05 05:38] LABS: Anion Gap 11 (12-20); Blood Urea Nitrogen 9 mg/dL (9-16); Calcium 8.0 mg/dL (8.4-10.2); Carbon Dioxide 29 mmol/L (22-29); Chloride 98 mmol/L (96-108); Creatinine Clr Calc Pharmacy 108.2; Estimated Glomerular Filt Rate > 60; Potassium 3.4 mmol/L (3.3-5.1); Sodium 135 mmol/L (135-145)
[2025-02-05 06:10] VITALS: BP 102/65; PULSE 70; RESP 18; O2SAT 92
--- NOTE | 2025-02-05 06:21 | PC.NURSE ---
attempted to verify pts methadone dose, pt stated she gets her meds from [facility], called and was able to verify pts last dose was for 90 mg on 12/19/24 @ 1121 and she was d/ since then.
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
[2025-02-05] MEDS: 0.9 % Sodium Chloride Flush 3 ML SYRINGE IVFLUSH (08:31)
[2025-02-05] MEDS: Triamcinolone Acet 0.1 % Cream 15 GM TUBE 1 APPL TOPICAL (08:32)
--- NOTE | 2025-02-05 08:42 | PC.NURSE ---
pt slept well, reports improvement in rash. cream applied as ordered. having breakfast.
--- NOTE | 2025-02-05 10:14 | HO.ADDICTCON ---
History of Present Illness Date of Service: 02/05/2025 Chief Complaint: Alcohol Use Reason for Consult: ANDIE Sources of Information: patient interviewed and chart reviewed HPI Narrative: Patient is a 34 year old female who presented to [facility] ED after being found asleep on the sidewalk due to alcohol intoxication. IN ED patient tremulous, given diazepam. Shorlty after sats dropped to 70s and CXR showing possible pneumonia so patient admitted. Patient seen in room 6 of main ED. She is awake, alert engaged in interview. Observed itching her legs several times during interview (reported to have poison phan). Patient states she has been drinking 5-6 Natty Daddys (25oz beers) daily for some time. She denies any history of treatment for AUD or withdrawal --she has been started on phenobarbital protocol in ED, and feels withdrawal sx are well managed. Mild tremor noted during interview. Denies nausea/vomiting, anxiety, loose stools. Discussed OUD and methadone She reports she has not used any opiates in over a year. Was previously engaged in treatment for OUD, with [facility] and was prescribed methadone Last dose was December 19 90mg. She states she stopped going to [facility] due to recurrent +breathalyzer tests which resulted in either no dose or reduced dosing. UDS +methadone, cocaine (benzos and barbiturates as well, however we administered both of those here) She states she has been buying methadone on the street and usually taking around 40mg. She says she last took some on Sunday, 02/02. 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 Reports one opioid overdose Medical Evaluation Reviewed: Yes Review of Systems Constitutional: Reports as per HPI and Reports no additional constitutional complaints Diagnostics Vital Signs (24Hr): Vital Signs - 24 hr 02/04/25 13:41 02/04/25 16:29 02/04/25 16:55 Temperature 98.3 F Pulse Rate 113 H 98 Respiratory Rate 20 16 Blood Pressure 142/79 H 128/85 Pulse Oximetry 93 96 83 L Oxygen Delivery Method Room Air Nasal Cannula Room Air Oxygen Flow Rate 2 02/04/25 20:48 02/04/25 20:53 02/04/25 21:53 Temperature 98.0 F 98.0 F Pulse Rate 91 74 Respiratory Rate 18 16 Blood Pressure 104/65 110/69 Pulse Oximetry 98 98 Oxygen Delivery Method Nasal Cannula Nasal Cannula Oxygen Flow Rate 2 1 02/05/25 06:10 Temperature Pulse Rate 70 Respiratory Rate 18 Blood Pressure 102/65 Pulse Oximetry 92 Oxygen Delivery Method Room Air Oxygen Flow Rate BMI result Body Mass Index 19.7 Labs 02/05/25 04:38 02/05/25 04:38 Labs: Laboratory Results - last 48 hr 02/04/25 02/04/25 02/04/25 14:30 17:14 17:28 WBC 5.6 RBC 3.89 L Hgb 12.1 Hct 36.0 L MCV 92.5 MCH 31.1 MCHC 33.6 RDW 13.1 Plt Count 194 MPV 8.9 L Immature Gran % (Auto) 1.3 H Neut % (Auto) 52.5 Lymph % (Auto) 32.0 [place] % (Auto) 12.0 H Eos % (Auto) 0.4 Baso % (Auto) 1.8 Lymph # (Auto) 1.8 [place] # (Auto) 0.7 Eos # (Auto) 0.0 Baso # (Auto) 0.1 Abs Immat Gran (auto) 0.07 H Absolute Neuts (auto) 2.9 Absolute Nucleated RBC 0.000 Nucleated RBC % (auto) 0.0 PT 10.3 L INR 0.9 D-Dimer High Sensitivty 346 Sodium 145 Potassium 3.3 Chloride 106 Carbon Dioxide 26 Anion Gap 16 BUN 15 Creatinine 0.53 Estim Creat Clear Calc 100.0 Estimated GFR > 60 Random Glucose 106 Lactic Acid 2.0 Calcium 8.4 Magnesium 2.0 Total Bilirubin 0.2 Direct Bilirubin 0.2 AST 114 H ALT 106 H Alkaline Phosphatase 116 C-Reactive Protein < 0.10 Total Protein 8.3 H Albumin 4.8 Beta HCG, Quant < 2 Urine Color Urine Appearance Urine pH Ur Specific [place] Urine Protein Urine Glucose (UA) Urine Ketones Urine Blood Urine Nitrite Ur Leukocyte Esterase Urine RBC Urine WBC Ur Squamous Epith Cells Urine Bacteria Hyaline Casts Urine Opiates Screen Ur Buprenorphine Scrn Ur Oxycodone Screen Urine Methadone Screen Urine Fentanyl Screen Ur Barbiturates Screen Ur Phencyclidine Scrn Ur Amphetamines Screen U Benzodiazepines Scrn Urine Cocaine Screen U Marijuana (THC) Screen Ethyl Alcohol 243 Influenza Type A (PCR) NEGATIVE Influenza Type B (PCR) NEGATIVE RSV RNA Qual (PCR) NEGATIVE SARS-CoV-2 RNA (RT-PCR) NEGATIVE 02/05/25 02/05/25 01:59 04:38 WBC 3.6 L RBC 3.49 L Hgb 10.8 L Hct 32.6 L MCV 93.4 MCH 30.9 MCHC 33.1 RDW 12.8 Plt Count 150 L MPV 9.6 Immature Gran % (Auto) 0.8 H Neut % (Auto) 54.2 Lymph % (Auto) 32.1 [place] % (Auto) 10.1 Eos % (Auto) 2.0 Baso % (Auto) 0.8 Lymph # (Auto) 1.2 [place] # (Auto) 0.4 Eos # (Auto) 0.1 Baso # (Auto) 0.0 Abs Immat Gran (auto) 0.03 Absolute Neuts (auto) 1.9 L Absolute Nucleated RBC 0.000 Nucleated RBC % (auto) 0.0 PT INR D-Dimer High Sensitivty Sodium 135 Potassium 3.4 Chloride 98 Carbon Dioxide 29 Anion Gap 11 L BUN 9 Creatinine 0.49 L Estim Creat Clear Calc 108.2 Estimated GFR > 60 Random Glucose 73 Lactic Acid Calcium 8.0 L Magnesium Total Bilirubin Direct Bilirubin AST ALT Alkaline Phosphatase C-Reactive Protein Total Protein Albumin Beta HCG, Quant Urine Color Yellow Urine Appearance Clear Urine pH 6.0 Ur Specific [place] 1.020 Urine Protein Negative Urine Glucose (UA) Negative Urine Ketones Negative Urine Blood Trace H Urine Nitrite Negative Ur Leukocyte Esterase Negative Urine RBC 0-2 Urine WBC 0-5 Ur Squamous Epith Cells 3-5 Urine Bacteria None Seen Hyaline Casts 0-2 Urine Opiates Screen Not Detected Ur Buprenorphine Scrn Not Detected Ur Oxycodone Screen Not Detected Urine Methadone Screen Positive H Urine Fentanyl Screen Not Detected Ur Barbiturates Screen POSITIVE H Ur Phencyclidine Scrn Not Detected Ur Amphetamines Screen Not Detected U Benzodiazepines Scrn POSITIVE H Urine Cocaine Screen POSITIVE H U Marijuana (THC) Screen Not Detected Ethyl Alcohol Influenza Type A (PCR) Influenza Type B (PCR) RSV RNA Qual (PCR) SARS-CoV-2 RNA (RT-PCR) Imaging Radiology Impressions: ITS Impressions Chest X-Ray 02/04/25 15:24 IMPRESSION: Bilateral subtle patchy pulmonary opacities suspicious for multifocal pneumonia. Electronically signed by: Mook Guzman MD 02/04/2025 04:29 PM EDT Mental Status Exam Mental Status Exam Level of Consciousness: Awake and Appropriate Patient Behavior: Appropriate, Talkative and Cooperative Affect Description: Calm Speech Pattern: Clear Hallucinations: None Delusions: Not Present Thought Process: Intact Thought Content: positive for Intact Judgement: Fair Medications Medications Current Medications Acetaminophen (Acetaminophen 325 Mg Tablet) 650 mg PO Q6H PRN PRN Reason: Pain, Mild 1-3,fever,headache Calcium Carbonate (Calcium Carbonate 750 Mg Tab.Chew) 750 mg PO Q4H PRN PRN Reason: Heartburn Enoxaparin Sodium (Enoxaparin Sodium 40 Mg/0.4 Ml Syringe) 40 mg SUBCUT Q24H [facility] Last Admin: 02/04/25 21:54 Dose: 40 mg Ampicillin Sodium/Sulbactam (Sodium 3 gm/ Sodium Chloride) 100 mls @ 200 mls/hr IV Q6H [facility] Last Infusion: 02/05/25 09:12 Dose: Infused Magnesium Hydroxide (Milk Of Magnesia 30 Ml Oral.Susp) 30 ml PO DAILY PRN PRN Reason: Constipation Melatonin (Melatonin 3 Mg Tablet) 6 mg PO BEDTIME PRN PRN Reason: Insomnia Ondansetron HCl (Ondansetron Hcl 4 Mg/2 Ml Vial) 4 mg IVPUSH Q8H PRN PRN Reason: Nausea and Vomiting Pharmacy Consult (Consult Rx Etoh Phenob Im/Po) 1 each MISCELLANE ONCE PRN; Protocol PRN Reason: Consult order Phenobarbital (Phenobarbital 30 Mg Tablet) 30 mg PO BID [facility] Stop: 02/06/25 21:01 Last Admin: 02/05/25 08:31 Dose: 30 mg Phenobarbital (Phenobarbital 15 Mg Tablet) 15 mg PO BID [facility] Stop: 02/08/25 21:01 Phenobarbital (Phenobarbital 15 Mg Tablet) 15 mg PO DAILY [facility] Stop: 02/10/25 09:01 Sodium Chloride (0.9 % Sodium Chloride Flush 3 Ml Syringe) 3 ml IVFLUSH QSHIFT [facility] Last Admin: 02/05/25 08:31 Dose: 3 ml Thiamine HCl (Thiamine Hcl 100 Mg Tablet) 100 mg PO DAILY [facility] Last Admin: 02/05/25 08:30 Dose: 100 mg Triamcinolone Acetonide (Triamcinolone Acet 0.1 % Cream 15 Gm Tube) 1 appl TOPICAL BID [facility]; Protocol Last Admin: 02/05/25 08:32 Dose: 1 appl Allergies Allergies Allergy/AdvReac Type Severity Reaction Status Date / Time No Known Allergies Allergy Verified 02/04/25 13:54 Assessment & Plan Assessment & Plan (1) Alcohol use disorder: Status: Acute Code(s): F10.90 - Alcohol use, unspecified, uncomplicated Assessment and Plan: phenobarbital taper in place thiamine and folic acid --continue at d/c (2) Opioid use disorder: Status: Acute Code(s): F11.90 - Opioid use, unspecified, uncomplicated Assessment and Plan: denies withdrawal sx--unclear how much methadone she is actually taking as she reported last dose being 4 days ago methadone 10mg PRN ordered max of 4 doses patient requesting to be referred back to [facility] CTC at discharge take home narcan at discharge hepatitis and HIV screens with next lab orders Total time managing care of this patient today __35__ minutes. PMFSH Past Medical History Medical History Alcohol use disorder Social History Social History Alcohol intake: current Alcohol intake frequency: 3 or more drinks per day Smoked in Last 30 Days: Yes Use of substances other than those prescribed or required for medical reasons: No Advance Directives: No Advance Directives Information Provided: No
--- NOTE | 2025-02-05 10:43 | MHC.CM.PN ---
Pt. said she can stay with her sister periodically. She does not have a PCP. HCP discussed, she declined to complete form at this time. She is on Methadone. Pt. is unsure if she will pursue detox tx. at this time. CM will follow for DC needs.
--- NOTE | 2025-02-05 12:47 | PC.NURSE ---
Pharmacy contacted for new nicotine patch due to compromised medication from subha
--- NOTE | 2025-02-05 14:30 | PC.NURSE ---
Pt states she feels better and would like to be discharged. MD aware and coming to bedside to re-evaluate pt for discharge.
[2025-02-05] MEDS: Nicotine 21 MG PATCH.TD24 TRANSDERMA (14:55)
--- NOTE | 2025-02-05 14:56 | PM.DS ---
DS: Providers Provider Date of Service: 02/04/25 Date of admission: 02/04/25 20:20 Date of discharge: 02/05/25 Primary care physician: Unknown Physician Consults: 02/04/25 16:25 ED CARE Team Crisis Consult Stat Comment: Reason for consultation: alcohol use/ detox 02/04/25 21:22 Addiction Medicine Provider Routine Consulting Provider: Addiction Covering Reason for consultation: Alcohol use disorder 02/05/25 14:04 Addiction Medicine Provider Routine Consulting Provider: Addiction Covering Reason for consultation: Pt. wishes methadone for IVDU/ opioid addiction. Discharge dependent. Attending physician on discharge: Siobhan Coronel DS: Diagnosis Discharge Diagnosis (1) Acute hypoxemic respiratory failure: Status: Acute (2) Aspiration pneumonitis: Status: Acute (3) Alcohol use disorder: Status: Acute (4) Opioid use disorder: Status: Acute DS: Summary Hospital Course Hospital Course: 34-year-old female with an history of EtOH abuse, opioid use disorder on methadone who BIBA with unconsciousness found on the side of the road, admitted for acute hypoxic respiratory failure likely due to aspiration penumonia in the setting of unconsciousness from EtOH withdrawal, superimposed acute toxic encephalopathy. The patient rapidly was removed off oxygen and is currently breathing well on room air. No respiratory complaints or issues to report. The patients lungs are CTAB without wheezing, rales or rhonchi, no cyanosis. The patient's encephalopathy rapidly recovered thought to be due to toxic vs metabolic etiology. Regarding her EtOH withdrawal, discussion was held with patient, and she was adament she did not wish to receive detoxification treatment in hospital and wishes to continue consuming alcohol. Discussed risks and consequences of continued EtOH abuse. She expresses understanding. Similar discussion was held regarding opioid abuse; the patient requests evaluation by Addiction medicine - restarting methadone in outpatient setting, and care has been established. Status at Discharge Functional status at discharge: independent ambulation Overall status at discharge: patient is back to baseline Time Attestation Total time managing care of this patient today: 45 mintues. Discharge Coordination Time (in mins): 15 Quality: Safe Use of Opioids Does Pt have an Active Cancer Diagnosis on the Problem List?: No Quality: Stroke Does the patient have a stroke diagnosis?: No Physical Exam Exam: Exam: Middle-aged female lying in bed in no distress Neck supple, no JVD Regular rate and rhythm, S1-S2 heard Regular breath sounds bilaterally, no wheezing or crackles appreciated Abdomen soft nontender, no guarding, no rigidity Patient is awake, alert and oriented to self, place, time and person ; bilateral tremors present Psych: Anxious Erythematous rash on her trunk and back Vital Signs: Vital Signs: Last Vital Signs Temp 98.0 F 02/04/25 21:53 Pulse 70 02/05/25 06:10 Resp 18 02/05/25 06:10 BP 102/65 02/05/25 06:10 Pulse Ox 92 02/05/25 06:10 O2 Del Method Room Air 02/05/25 06:10 O2 Flow Rate 1 02/04/25 21:53 BMI result Body Mass Index 19.7 DS: Data Data Completed and Pending Labs on day of discharge: Laboratory Results - last 24 hr 02/04/25 02/04/25 02/04/25 14:30 17:14 17:28 WBC RBC Hgb Hct MCV MCH MCHC RDW Plt Count MPV Immature Gran % (Auto) Neut % (Auto) Lymph % (Auto) [place] % (Auto) Eos % (Auto) Baso % (Auto) Lymph # (Auto) [place] # (Auto) Eos # (Auto) Baso # (Auto) Abs Immat Gran (auto) Absolute Neuts (auto) Absolute Nucleated RBC Nucleated RBC % (auto) D-Dimer High Sensitivty 346 Sodium 145 Potassium 3.3 Chloride 106 Carbon Dioxide 26 Anion Gap 16 BUN 15 Creatinine 0.53 Estim Creat Clear Calc 100.0 Estimated GFR > 60 Random Glucose 106 Lactic Acid 2.0 Calcium 8.4 Magnesium 2.0 Total Bilirubin 0.2 Direct Bilirubin 0.2 AST 114 H ALT 106 H Alkaline Phosphatase 116 C-Reactive Protein < 0.10 Total Protein 8.3 H Albumin 4.8 Beta HCG, Quant < 2 Urine Color Urine Appearance Urine pH Ur Specific [place] Urine Protein Urine Glucose (UA) Urine Ketones Urine Blood Urine Nitrite Ur Leukocyte Esterase Urine RBC Urine WBC Ur Squamous Epith Cells Urine Bacteria Hyaline Casts Urine Opiates Screen Ur Buprenorphine Scrn Ur Oxycodone Screen Urine Methadone Screen Urine Fentanyl Screen Ur Barbiturates Screen Ur Phencyclidine Scrn Ur Amphetamines Screen U Benzodiazepines Scrn Urine Cocaine Screen U Marijuana (THC) Screen Ethyl Alcohol 243 Influenza Type A (PCR) NEGATIVE Influenza Type B (PCR) NEGATIVE RSV RNA Qual (PCR) NEGATIVE SARS-CoV-2 RNA (RT-PCR) NEGATIVE 02/05/25 02/05/25 01:59 04:38 WBC 3.6 L RBC 3.49 L Hgb 10.8 L Hct 32.6 L MCV 93.4 MCH 30.9 MCHC 33.1 RDW 12.8 Plt Count 150 L MPV 9.6 Immature Gran % (Auto) 0.8 H Neut % (Auto) 54.2 Lymph % (Auto) 32.1 [place] % (Auto) 10.1 Eos % (Auto) 2.0 Baso % (Auto) 0.8 Lymph # (Auto) 1.2 [place] # (Auto) 0.4 Eos # (Auto) 0.1 Baso # (Auto) 0.0 Abs Immat Gran (auto) 0.03 Absolute Neuts (auto) 1.9 L Absolute Nucleated RBC 0.000 Nucleated RBC % (auto) 0.0 D-Dimer High Sensitivty Sodium 135 Potassium 3.4 Chloride 98 Carbon Dioxide 29 Anion Gap 11 L BUN 9 Creatinine 0.49 L Estim Creat Clear Calc 108.2 Estimated GFR > 60 Random Glucose 73 Lactic Acid Calcium 8.0 L Magnesium Total Bilirubin Direct Bilirubin AST ALT Alkaline Phosphatase C-Reactive Protein Total Protein Albumin Beta HCG, Quant Urine Color Yellow Urine Appearance Clear Urine pH 6.0 Ur Specific [place] 1.020 Urine Protein Negative Urine Glucose (UA) Negative Urine Ketones Negative Urine Blood Trace H Urine Nitrite Negative Ur Leukocyte Esterase Negative Urine RBC 0-2 Urine WBC 0-5 Ur Squamous Epith Cells 3-5 Urine Bacteria None Seen Hyaline Casts 0-2 Urine Opiates Screen Not Detected Ur Buprenorphine Scrn Not Detected Ur Oxycodone Screen Not Detected Urine Methadone Screen Positive H Urine Fentanyl Screen Not Detected Ur Barbiturates Screen POSITIVE H Ur Phencyclidine Scrn Not Detected Ur Amphetamines Screen Not Detected U Benzodiazepines Scrn POSITIVE H Urine Cocaine Screen POSITIVE H U Marijuana (THC) Screen Not Detected Ethyl Alcohol Influenza Type A (PCR) Influenza Type B (PCR) RSV RNA Qual (PCR) SARS-CoV-2 RNA (RT-PCR) Discharge Plan Discharge Anticipated Discharge Date/Time: 02/05/25 15:09 Patient Disposition: Home, Self-Care Discharge Diagnosis: acute hypoxic respiratory failure due to aspiration pneumonitis and altered mental status (toxic & metabolic encephalopathy) on background issues of opioid and EtOH abuse. Referrals: Physician,Unknown J [Primary Care Provider, Medical] - 1 Week Discharge Medications: New amoxicillin-pot clavulanate [Augmentin] 500-125 mg tablet 1 tab PO BID 7 Days Qty: 14 0RF triamcinolone acetonide 0.1 % Cream 1 appl topical BID 7 Days Qty: 1 1RF Protocol: Apply to: Apply to: rash thiamine mononitrate (vit B1) 100 mg tablet 100 mg PO DAILY 30 Days Qty: 30 1RF Discharge Orders: Discharge Order (Routine); Ordered 02/05/25 Ordered By: Siobhan Coronel Diet: Advance to usual diet Activity on Discharge: As tolerated Stand Alone Forms: Patient Portal Discharge page Print Language: Welsh Care Plan Goals: EtOH Cessation encouraged Opioid cessation encouraged Follow up with outpatient addiction medicine methadone clinic Health Concerns: As above Plan of Treatment: EtOH Cessation encouraged Opioid cessation encouraged Follow up with outpatient addiction medicine methadone clinic Assessment: Stable and back to baseline condition. The patient does not wish to remain in hospital for EtOH management and withdrawal support. Expresses understanding to plan.
[2025-02-05 15:05] VITALS: BP 102/65; PULSE 70; RESP 18; TEMP 36.7; O2SAT 92
[2025-02-05] MEDS: methADONE HCl 20 MG/2 ML ORAL.CONC PO (15:07)
[2025-02-05] MEDS: Naloxone HCl Nasal TAKE HOME 4 MG SPRAY 8 MG NOSTRILALT (15:08)
== END 2025-02-05 17:00 | disposition home or self-care (01) | DRG 137 ==
LOC: HO.ED 16:12 → HO.EDOVER 21:06
PROVIDERS: Admitting Provider Student in an Organized Health Care Education/Training Program; Emergency Provider Emergency Medicine; Visit Provider Hospitalist
DX: J69.0 Pneumonitis due to inhalation of food and vomit (principal); J96.01 Acute respiratory failure with hypoxia; G92.8 Other toxic encephalopathy; G93.41 Metabolic encephalopathy; F11.20 Opioid dependence, uncomplicated; Y90.8 Blood alcohol level of 240 mg/100 ml or more; L30.8 Other specified dermatitis; F10.129 Alcohol abuse with intoxication, unspecified; F10.139 Alcohol abuse with withdrawal, unspecified; Z20.822 Contact with and (suspected) exposure to COVID-19
CPT/HCPCS: 36415; 70450; 71046; 71275; 80048; 80076; 80307; 81001; 83605; 83735; 84702; 85025; 85379; 85610; 86140; 87040; 87637; 93005; 99221; 99285; J0295; J0456; J0696; J1650; J2560; J3360; J3411; Q9967; S9485

== ENCOUNTER → 2025-02-04 16:06 | Outpatient (BNV) | payer OTHER, SELFPAY | PROVIDERS: Emergency Provider Emergency Medicine; Visit Provider Radiology Diagnostic Radiology | DX: R79.89 Other specified abnormal findings of blood chemistry (principal); J98.11 Atelectasis; S09.90XA Unspecified injury of head, initial encounter; R91.8 Other nonspecific abnormal finding of lung field | CPT/HCPCS: 70450; 71046; 71275 ==

== ENCOUNTER → 2025-02-04 17:27 | Outpatient (BNV) | payer OTHER, SELFPAY | PROVIDERS: Admitting Provider Student in an Organized Health Care Education/Training Program; Emergency Provider Emergency Medicine; Visit Provider Internal Medicine | DX: R53.1 Weakness (principal) | CPT/HCPCS: 93010 ==

== ENCOUNTER → 2025-02-04 20:20 | Outpatient (BNV) | payer OTHER, SELFPAY | PROVIDERS: Admitting Provider Student in an Organized Health Care Education/Training Program; Emergency Provider Emergency Medicine; Visit Provider Nurse Practitioner Psychiatric/Mental Health | DX: F10.90 Alcohol use, unspecified, uncomplicated (principal); F11.90 Opioid use, unspecified, uncomplicated | CPT/HCPCS: 99232 ==

== ENCOUNTER → 2025-02-04 20:20 | Outpatient (BNV) | payer OTHER, SELFPAY | PROVIDERS: Admitting Provider Student in an Organized Health Care Education/Training Program; Emergency Provider Emergency Medicine; Visit Provider Student in an Organized Health Care Education/Training Program | DX: F10.939 Alcohol use, unspecified with withdrawal, unspecified (principal) | CPT/HCPCS: 99223 ==